=== PATIENT | female | born 1955 | race Caucasian/White ===

== ENCOUNTER 2018-08-13 10:55 | Day surgery (SDC) | payer OTHER ==
[~2018-08-13] VITALS: Ht 167.6 cm; Wt 47.6 kg
[2018-08-13 11:46] VITALS: BP 155/80; PULSE 78; TEMP 97.9
[2018-08-13] MEDS ORDERED: TOPROL XL 25MG25 MG PO ×2 (11:52→11:53)
[2018-08-13] MEDS ORDERED: OXY IR5 MG PO (11:54)
[2018-08-13 14:30] VITALS: BP 147/89; PULSE 71; TEMP 98.5
[2018-08-13 14:45] VITALS: BP 159/88; PULSE 85
[2018-08-13 15:00] VITALS: BP 160/84; PULSE 75
== END 2018-08-13 15:17 | disposition home or self-care (01) ==
LOC: SDCO 10:55
DX: K56.699 Other intestinal obstruction unspecified as to partial versus complete obstruction (principal); C56.9 Malignant neoplasm of unspecified ovary; K59.00 Constipation, unspecified; R14.0 Abdominal distension (gaseous); C78.6 Secondary malignant neoplasm of retroperitoneum and peritoneum; Z88.6 Allergy status to analgesic agent; Z88.5 Allergy status to narcotic agent; Z90.49 Acquired absence of other specified parts of digestive tract
CPT/HCPCS: J2250; J2704; J3010